=== PATIENT | male | born 1995 | race Caucasian/White ===

== ENCOUNTER 2025-04-29 22:29 | Emergency (ER) | payer OTHER ==
[2025-04-30] MEDS ORDERED: Clindamycin 150 MG CAP ONE (01:32)
== END 2025-04-30 01:28 | disposition home or self-care (01) ==
LOC: CSHERS 22:29
DX: K04.7 Periapical abscess without sinus (principal); F17.210 Nicotine dependence, cigarettes, uncomplicated
CPT/HCPCS: 99282